=== PATIENT | female | born 1980 | race American Indian/Alaskan Native ===

== ENCOUNTER 2018-03-17 13:47 | Emergency (ER) | payer SELFPAY ==
[2018-03-17 13:59] VITALS: BP 124/70
[2018-03-17] MEDS ORDERED: ASPIRIN PO ONE (14:00)
[2018-03-17 14:35] LABS: Basophils # (Auto) 0.1 K/mm3 (0.0-0.1); Basophils % (Auto) 0.8 % (0.0-1.8); Eosinophils # (Auto) 0.1 K/mm3 (0.0-0.4); Eosinophils % (Auto) 2.1 % (0.0-4.3); Hematocrit 40.5 % (30.3-42.9); Lymphocytes % (Auto) 29.7 % (13.4-35.0); Mean Corpuscular HGB Conc 35 % (30-34); Mean Corpuscular Hemoglobin 31 pg (28-32); Mean Corpuscular Volume 89 fl (79-97); Monocytes # (Auto) 0.4 K/mm3 (0.0-0.8); Monocytes % (Auto) 6.3 % (0.0-7.3); Platelet Count 245 K/mm3 (140-440); Red Blood Count 4.56 M/mm3 (3.65-5.03); Red Cell Distribution Width 14.1 % (13.2-15.2)
[2018-03-17 14:46] LABS: BUN/Creatinine Ratio 16; Blood Urea Nitrogen 21 mg/dL (7-17); Calcium 9.6 mg/dL (8.4-10.2); Hemolysis Index 5
--- NOTE | 2018-03-17 15:16 | Cat Scan Report ---
CT scan of head without IV contrast: History: Headache. History of CVA. Loss of vision in left eye. Findings: Ventricles are normal in size and midline in location. Ill-defined focal area of low attenuation in the left frontal lobe adjacent to the inner table measuring 2 cm in diameter. There is metallic plate identified at previous craniotomy site in the left posterior parietal region. There is no evidence of hemorrhage. No definite evidence of acute ischemia. Normal sinuses and mastoid air cells. Impression: Area of low attenuation right frontal lobe is probably related to chronic ischemia or old injury. No evidence of acute ischemia or hemorrhage.
== END 2018-03-17 19:21 | disposition left against medical advice (07) ==
LOC: ED 13:47
DX: R07.9 Chest pain, unspecified (principal); Z53.21 Procedure and treatment not carried out due to patient leaving prior to being seen by health care provider
CPT/HCPCS: 36415; 70450; 80048; 84484; 84703; 85025; 93005; 93010

== ENCOUNTER 2018-06-09 11:23 | Emergency (ER) | payer MEDICARE ==
[2018-06-09 11:31] VITALS: BP 113/52
[2018-06-09] MEDS ORDERED: MOTRIN PO ONE (11:43)
--- NOTE | 2018-06-09 11:43 | Emergency Department Report ---
ED Extremity Problem HPI - General Chief complaint: Extremity Injury, Lower Stated complaint: (R) KNEE POPPED OUT OF PLACE Time Seen by Provider: 06/09/18 11:34 Source: patient Mode of arrival: Ambulatory Limitations: No Limitations - History of Present Illness Initial comments: Patient is a 37 Medical female who states she stepped wrong yesterday and her right patella dislocated laterally. Patient states she is able to straighten her leg and her patella moved back to correct position but is still been painful. Patient states there is aching sensation 6 out of 10 severity is worse when she bears weight and when she bends her knee. Patient denies any other injury at this time. - Related Data Previous Rx's Medication Instructions Recorded Last Taken Type Ibuprofen [Motrin] 600 mg PO Q8H PRN #20 tablet 06/09/18 Unknown Rx traMADol [Ultram] 50 mg PO Q6HR PRN #10 tablet 06/09/18 Unknown Rx Allergies Allergy/AdvReac Type Severity Reaction Status Date / Time No Known Allergies Allergy Unverified 03/17/18 13:59 ED Review of Systems ROS: Stated complaint: (R) KNEE POPPED OUT OF PLACE Other details as noted in HPI Comment: All other systems reviewed and negative Constitutional: denies: chills, fever Eyes: denies: eye pain, eye discharge, vision change ENT: denies: ear pain, throat pain Respiratory: denies: cough, shortness of breath, wheezing Cardiovascular: denies: chest pain, palpitations Endocrine: no symptoms reported Gastrointestinal: denies: abdominal pain, nausea, diarrhea Genitourinary: denies: urgency, dysuria, discharge Musculoskeletal: denies: back pain, joint swelling, arthralgia Skin: denies: rash, lesions Neurological: denies: headache, weakness, paresthesias Psychiatric: denies: anxiety, depression Hematological/Lymphatic: denies: easy bleeding, easy bruising ED Past Medical Hx - Past Medical History Previous Medical History?: Yes Hx CVA: Yes (x3, hearing impaired from CVA per pt.) Hx Congestive Heart Failure: Yes Hx Renal Disease: Yes (CKD stage 3) Additional medical history: Cardiomyopathy 2009. Lupus - Surgical History Additional Surgical History: AICD - Social History Smoking Status: Former Smoker Substance Use Type: Alcohol - Medications Home Medications: Home Medications Medication Instructions Recorded Confirmed Last Taken Type Ibuprofen [Motrin] 600 mg PO Q8H PRN #20 tablet 06/09/18 Unknown Rx traMADol [Ultram] 50 mg PO Q6HR PRN #10 tablet 06/09/18 Unknown Rx ED Physical Exam - General Limitations: No Limitations General appearance: alert, in no apparent distress - Head Head exam: Present: atraumatic, normocephalic - Eye Eye exam: Present: normal appearance - ENT ENT exam: Present: mucous membranes moist - Neck Neck exam: Present: normal inspection - Respiratory Respiratory exam: Present: normal lung sounds bilaterally. Absent: respiratory distress - Cardiovascular Cardiovascular Exam: Present: regular rate, normal rhythm. Absent: systolic murmur, diastolic murmur, rubs, gallop - GI/Abdominal GI/Abdominal exam: Present: soft, normal bowel sounds - Extremities Exam Extremities exam: Present: normal inspection, full ROM, tenderness (patient has full range of motion but does have some tenderness in the anterior knee in the soft tissue.). Absent: joint swelling - Back Exam Back exam: Present: normal inspection - Neurological Exam Neurological exam: Present: alert, oriented X3 - Psychiatric Psychiatric exam: Present: normal affect, normal mood - Skin Skin exam: Present: warm, dry, intact, normal color. Absent: rash ED Course Vital Signs 06/09/18 11:25 Temperature 98.5 F Pulse Rate 61 Respiratory 16 Rate Blood Pressure 113/52 O2 Sat by Pulse 100 Oximetry ED Medical Decision Making - Medical Decision Making Patient does not have any bony point tenderness at this time does have a mild-to -moderate effusion. Patient will be placed in knee immobilizer for several days be given meds for symptomatic relief. Critical care attestation.: If time is entered above; I have spent that time in minutes in the direct care of this critically ill patient, excluding procedure time. ED Disposition Clinical Impression: Patellar dislocation Qualifiers: Encounter type: initial encounter Laterality: right Qualified Code(s): S83.004A - Unspecified dislocation of right patella, initial encounter Knee effusion Qualifiers: Laterality: right Qualified Code(s): M25.461 - Effusion, right knee Disposition: TO HOME OR SELFCARE Is pt being admited?: No Does the pt Need Aspirin: No Condition: Stable Instructions: Knee Effusion (ED), Patellar Dislocation (ED)
== END 2018-06-09 11:59 | disposition home or self-care (01) ==
LOC: ED 11:23
DX: S83.004A Unspecified dislocation of right patella, initial encounter (principal); I50.9 Heart failure, unspecified; N18.3 Chronic kidney disease, stage 3 (moderate); Z86.73 Personal history of transient ischemic attack (TIA), and cerebral infarction without residual deficits; Z87.891 Personal history of nicotine dependence; Z95.1 Presence of aortocoronary bypass graft; X58.XXXA Exposure to other specified factors, initial encounter; Y93.89 Activity, other specified; Y92.89 Other specified places as the place of occurrence of the external cause; Y99.8 Other external cause status
CPT/HCPCS: 99282